=== PATIENT | female | born 1950 | race Caucasian/White ===

== ENCOUNTER 2022-05-13 13:25 | Emergency (ER) | payer OTHER | END 2022-05-13 14:04 | disposition home or self-care (01) | LOC: BURERS 13:25 | DX: S60.042A Contusion of left ring finger without damage to nail, initial encounter (principal); I10 Essential (primary) hypertension; Z79.899 Other long term (current) drug therapy; W49.04XA Ring or other jewelry causing external constriction, initial encounter | CPT/HCPCS: 99283 ==